=== PATIENT | female | born 1975 | race American Indian/Alaskan Native ===

== ENCOUNTER 2020-04-10 20:15 | Emergency (ER) | payer BC, MEDICAID, OTHER ==
[2020-04-10] MEDS ORDERED: GI Cocktail Oral Solution 30 ML PO ONE (20:42)
[2020-04-10] MEDS ORDERED: Omeprazole 20 MG Cap.CR PO ONE (21:37)
--- NOTE | 2020-04-10 21:43 | EDM.PDOC ---
ED HPI GENERAL MEDICAL PROBLEM - General Chief Complaint: Abdominal Pain Stated Complaint: STOMACH CRAPS, NOW HARD BREATHING Time Seen by Provider: 04/10/20 21:37 Source of Information: Reports: Patient History Limitations: Reports: No Limitations - History of Present Illness INITIAL COMMENTS - FREE TEXT/NARRATIVE: sudden onset epig pain after eating garlic bread and stuff pasta. got so bad she had SOB and sweats. also had GB removed. Upper Abdomen Pain Score (Numeric/FACES): 6 - Related Data Allergies Allergy/AdvReac Type Severity Reaction Status Date / Time amoxicillin [Amoxicillin] Allergy Swollen Verified 04/10/20 20:50 Tongue sulfamethoxazole Allergy Hives Verified 04/10/20 20:50 [From Bactrim] Home Meds: Home Meds Escitalopram Oxalate 10 mg ORAL.INH DAILY 06/04/14 [History] Pregabalin [Lyrica] 100 mg PO TID 04/10/20 [History] Past Medical History - Past Health History Medical/Surgical History: Denies Medical/Surgical History ICU SPECIALIST History: Reports: , Other (See Below) Other ICU SPECIALIST History: 2 c-sections Oncologic (Cancer) History: Reports: Breast - Past Surgical History GI Surgical History: Reports: Cholecystectomy Social & Family History - Tobacco Use Smoking Status *Q: Current Every Day Smoker Years of Tobacco use: 20 Packs/Tins Daily: 0.5 - Caffeine Use Caffeine Use: Reports: Coffee - Recreational Drug Use Recreational Drug Use: No ED ROS GENERAL - Review of Systems Review Of Systems: Comprehensive ROS is negative, except as noted in HPI. ED EXAM, GI/ABD - Physical Exam Exam: See Below Exam Limited By: No Limitations General Appearance: Alert, WD/WN, Anxious, Mild Distress, Other ([place]). No: Active Emesis Ears: Hearing Grossly Normal Throat/Mouth: Normal Voice, No Airway Compromise Head: Atraumatic Neck: Non-Tender, Full Range of Motion Respiratory/Chest: No Respiratory Distress Cardiovascular: Regular Rate, Rhythm GI/Abdominal Exam: Soft, Tender, Other (epig region). No: Distended, Guarding, Rigid, Rebound Neurological: Alert, Oriented, Normal Cognition, Normal Gait, No Motor/Sensory Deficits Psychiatric: Anxious, Tearful Skin Exam: Warm, Dry, Normal Color Lymphatic: No Adenopathy Course - Vital Signs Last Recorded V/S: Last Vital Signs Temp 36.4 C 08/16/20 20:30 Pulse 67 04/10/20 20:30 Resp 18 04/10/20 20:30 BP 117/75 04/10/20 20:30 Pulse Ox 100 04/10/20 20:30 - Orders/Labs/Meds Orders: Active Orders 24 hr Category Date Time Status Omeprazole Med 04/10/20 21:37 Once 20 mg PO ONETIME ONE Labs: Laboratory Tests 04/10/20 Range/Units 20:30 Urine Color Yellow (YELLOW) Urine Appearance Clear (CLEAR) Urine pH 5.5 (5.0-9.0) Ur Specific [place] >= 1.030 (1.005-1.030) Urine Protein Negative (NEGATIVE) Urine Glucose (UA) Negative (NEGATIVE) Urine Ketones Negative (NEGATIVE) Urine Occult Blood Trace-intact H (NEGATIVE) Urine Nitrite Negative (NEGATIVE) Urine Bilirubin Negative (NEGATIVE) Urine Urobilinogen 0.2 (0.2-1.0) mg/dL Ur Leukocyte Esterase Negative (NEGATIVE) Urine RBC 0-5 /HPF Urine WBC 0-5 (0-5/HPF) /HPF Ur Epithelial Cells Rare (NOT SEEN) /HPF Amorphous Sediment Rare (NOT SEEN) /HPF Urine Bacteria Few (0-FEW/HPF) /HPF Urine Mucus Rare (NOT SEEN) /LPF Meds: Medications Discontinued Medications Generic Name Dose Route Start Last Admin Trade Name Njq PRN Reason Stop Dose Admin Al Hydroxide/Mg Hydroxide 30 ml 04/10/20 20:42 04/10/20 21:06 Gi Cocktail PO 04/10/20 20:43 30 ml ONETIME ONE Administration - Re-Assessments/Exams Free Text/Narrative Re-Assessment/Exam: 04/10/20 21:40 re-exam; s/p GI cocktail = pain almost gone. states used to take omepraz for acid reflux before she had her GB removed. Departure - Departure Time of Disposition: 21:41 Disposition: Home, Self-Care 01 Condition: Good Clinical Impression: Acid reflux Qualifiers: Esophagitis presence: with esophagitis Qualified Code(s): K21.0 - Gastro- esophageal reflux disease with esophagitis - Discharge Information Instructions: Food Choices for Gastroesophageal Reflux Disease, Adult, [id number] Additional Instructions: 1) avoid spicy and fatty foods 2) follow up at clinic rx given; omperazol 20mg daily x 7 Sepsis Event Note (ED) - Evaluation Sepsis Screening Result: No Definite Risk - Focused Exam Vital Signs: Vital Signs Temp Pulse Resp BP Pulse Ox 04/10/20 20:30 36.4 C 67 18 117/75 100 - My Orders Last 24 Hours: My Active Orders 04/10/20 21:37 Omeprazole 20 mg PO ONETIME ONE - Assessment/Plan Last 24 Hours: My Active Orders 04/10/20 21:37 Omeprazole 20 mg PO ONETIME ONE
== END 2020-04-10 21:50 | disposition home or self-care (01) ==
LOC: DL.ED 20:15
DX: K21.0 Gastro-esophageal reflux disease with esophagitis (principal); F17.210 Nicotine dependence, cigarettes, uncomplicated; Z88.2 Allergy status to sulfonamides; Z88.1 Allergy status to other antibiotic agents; Z90.89 Acquired absence of other organs
CPT/HCPCS: 81001; 99283; 99284; A9270